=== PATIENT | female | born 1970 | race Caucasian/White ===

== ENCOUNTER → 2021-10-01 | Outpatient (CLI) | payer OTHER ==
[2021-10-02 03:06] LABS: RUBELLA AB IGG-REFLAB 2.81 index (Immune >0.99)
== END | disposition home or self-care (01) ==
LOC: LABMN 11:16
PROVIDERS: ATTEND Internal Medicine
DX: Z02.1 Encounter for pre-employment examination (principal)
CPT/HCPCS: 86706; 86735; 86762; 86765; 86787